=== PATIENT | male | born 1990 | race African-American/Black ===

== ENCOUNTER 2016-12-29 21:58 | Emergency (ER) | payer OTHER ==
[2016-12-30] MEDS ORDERED: Ibuprofen 800 MG TAB ONE (00:41)
== END 2016-12-30 01:11 | disposition home or self-care (01) ==
LOC: ERS 21:58
DX: R51 Headache (principal); J45.909 Unspecified asthma, uncomplicated
CPT/HCPCS: 99283

== ENCOUNTER 2017-03-01 17:48 | Emergency (ER) | payer OTHER ==
[2017-03-01] MEDS ORDERED: Acetaminophen 500 MG TAB ONE (20:08)
== END 2017-03-01 20:17 | disposition home or self-care (01) ==
LOC: ERS 17:48
DX: J06.9 Acute upper respiratory infection, unspecified (principal); J45.909 Unspecified asthma, uncomplicated
CPT/HCPCS: 99406

== ENCOUNTER 2017-12-26 18:28 | Emergency (ER) | payer OTHER, SELFPAY ==
[2017-12-26 18:45] LABS: Bilirubin Negative (Negative); Blood, Urine Negative (Negative); Clarity CLEAR (Clear); Glucose, Urine (Dipstick) Negative (Negative); Leukocyte Moderate (Negative); Nitrite Negative (Negative); Protein, Urine (Dipstick) Negative (Neg-Trace); Specific Gravity, Urine 1.025 (1.002-1.036); pH, Urine 6.5 (5.0-9.0)
[2017-12-26 18:47] LABS: Bacteria/HPF None Seen HPF (None Seen); Hyaline Casts/LPF 4-6 HYALINE CAST LPF (0-3 Hyaline); Pathc Cast-AUWi Flag 0.29 (0-2.49); RBC/HPF 0-3 HPF (0-3); Squamous Epithelial 0-3 HPF (0-3)
[2017-12-26] MEDS ORDERED: Lidocaine 1% PF 5 ML VIAL ONE (19:00)
[2017-12-26] MEDS ORDERED: cefTRIAXone\\ROCEPHIN 250 MG VIAL ONE (19:00)
[2017-12-26] MEDS ORDERED: Azithromycin 250 MG TAB ONE (19:00)
[2017-12-28 03:06] LABS: Chlamydia by PCR DETECTED (NotDetected); GC by PCR Not Detected (NotDetected)
== END 2017-12-26 19:30 | disposition home or self-care (01) ==
LOC: ERS 18:28
DX: N34.2 Other urethritis (principal); J45.909 Unspecified asthma, uncomplicated
CPT/HCPCS: 81003; 81015; 87491; 87591; 96372; J0696; J2001

== ENCOUNTER 2022-06-03 20:32 | Emergency (ER) | payer BC, SELFPAY ==
[2022-06-03] MEDS ORDERED: cefTRIAXone (ROCEPHIN) 1 GM VIAL ONE (21:17)
[2022-06-03] MEDS ORDERED: Lidocaine 1% PF 5 ML VIAL ONE (21:17)
== END 2022-06-03 21:45 | disposition home or self-care (01) ==
LOC: ERS 20:32
DX: Z20.2 Contact with and (suspected) exposure to infections with a predominantly sexual mode of transmission (principal)
CPT/HCPCS: 96372; 99283; J0696